=== PATIENT | male | born 1985 | race African-American/Black ===

== ENCOUNTER 2019-09-06 14:40 | Emergency (ER) | payer OTHER, SELFPAY ==
[2019-09-07 14:52] LABS: SARS-CoV-2 MS2 Positive; SARS-CoV-2 N Gene Positive; SARS-CoV-2 S Gene Positive; SARS-CoV-2 by NAA DETECTED (NotDetected); SARS-CoV-2 orf1ab Positive
== END 2019-09-06 15:50 | disposition home or self-care (01) ==
LOC: ERS 14:40
DX: U07.1 COVID-19 (principal); F17.210 Nicotine dependence, cigarettes, uncomplicated
CPT/HCPCS: 87635; 99283; U0003

== ENCOUNTER 2019-09-19 09:36 | Emergency (ER) | payer OTHER, SELFPAY ==
[2019-09-21 13:56] LABS: SARS-CoV-2 MS2 Negative; SARS-CoV-2 N Gene Positive; SARS-CoV-2 S Gene Positive; SARS-CoV-2 by NAA DETECTED (NotDetected); SARS-CoV-2 orf1ab Positive
== END 2019-09-19 10:12 | disposition home or self-care (01) ==
LOC: ERS 09:36
DX: U07.1 COVID-19 (principal); F17.210 Nicotine dependence, cigarettes, uncomplicated
CPT/HCPCS: 87635; 99283; U0003